=== PATIENT | female | born 1965 | race Caucasian/White ===

== ENCOUNTER → 2019-01-28 | Day surgery (SDC) | payer OTHER ==
[~2019-01-28] VITALS: Ht 162.5 cm; Wt 110.2 kg
[~2019-01-28] MED LIST: ANTIVERT/2525 M1 PO; ASPIRIN ADULT L81 M2 PO; CARDIZEM120 MG PO; CARTIA XT120 MG PO; EFFEXOR XR150 M1 PO; PRILOSEC20 M2 PO; SEROQUEL50 MG PO; VITAMIN C1000 M5 PO; VITAMIN C500 M4 PO; VITAMIN D-32000 UNI1 PO; WELLBUTRIN SR150 MG PO; XANAX1 MG PO
--- NOTE | ~2019-01-28 | O ---
[place], [place] OPERATIVE NOTE NAME: JOSE KRUSE UNIT #: [id number] ROOM: DOCTOR: BELKYS HARGROVE MD BIRTHDATE: [birth year] DOS: 01/28/2019 GASTROENDOSCOPIC REPORT INDICATIONS: A 53-year-old patient who was presented with chief complaint of concern about colonic screening as well on chronic omeprazole therapy for the past 20 years. ALLERGIES: CODEINE. FAMILY HISTORY: Noncontributory. PAST SURGICAL HISTORY: Cholecystectomy, tubal ligation, hysterectomy, abdominal hernia, appendectomy. PAST MEDICAL HISTORY: Hypertension, borderline diabetes mellitus, depression. SOCIAL HISTORY: Smoker, nonalcohol consumer, 6-pack of carbonated soda drinker per day. PROCEDURE: Today's procedure part of investigation is panendoscopy and colonoscopy. PREMEDICATION: Propofol. SCOPE: Olympus forward-viewing gastroscope Q10 video. REPORT: After putting the patient in left lateral position and application of lubricant to the scope, the scope was introduced. Thereafter, under direct visualization, I advanced through the length of esophagus without difficulty. Hiatal hernia was noticed. Gastric pouch was entered. Gastritis seen. Antral biopsy obtained for H. pylori. Duodenal bulb, second and third part within normal limits. The patient extubated, tolerated the procedure well. IMPRESSION: Small hiatal hernia, gastritis, status post biopsy. PLAN AND DISCUSSION: Omeprazole 20 mg 1 daily and antireflux measures to stop drinking 6 pack of carbonated soda per day. No smoking was advised, elevation of the head of the bed at 6 to 10 inches was recommended. I doubt if she is going to be compliant; however, we will try, on the other hand we are going to proceed with colonoscopy today. PROCEDURE #2 INDICATIONS: The patient with colonic screening, undergoing investigation. PROCEDURE: Today's procedure part of investigation is colonoscopy plus piecemeal polypectomy. PREMEDICATION: Propofol. [place], [place] OPERATIVE NOTE NAME: JOSE KRUSE UNIT #: [id number] ROOM: DOCTOR: BELKYS HARGROVE MD BIRTHDATE: [birth year] SCOPE: Olympus forward-viewing colonoscope 10L video. REPORT: After putting the patient in left lateral position and application of lubricant to the scope, the scope was introduced. Thereafter, under direct visualization, advanced through the length of very tortuous colon. Base of the cecum explored, appendiceal orifice identified, ileocecal valve was defined. Diverticulosis scatteredly was noticed. A sessile polypoid lesion in the rectum with piecemeal polypectomy removed. The patient extubated, tolerated the procedure well. IMPRESSION: Diverticulosis, tortuous colon. Rectal sessile polyp. PLAN AND DISCUSSION: The patient does not need further colonoscopies 5-7 years. High fiber diet. ACTIVITY: Ad mariposa. Thank you very much indeed. BELKYS HARGROVE MD CM:OPRECORD:OPERATIVE NOTE [id number] SANTI HARGROVE MD 01/28/19 1130 interface
[2019-01-28 08:42] VITALS: BP 141/74
[2019-01-28 10:13] VITALS: BP 112/65
[2019-01-28 10:28] VITALS: BP 122/72
[2019-01-28 10:43] VITALS: BP 134/78
== END | disposition home or self-care (01) ==
LOC: SDC 01-22 09:30
DX: Z12.11 Encounter for screening for malignant neoplasm of colon (principal); K62.1 Rectal polyp; K57.30 Diverticulosis of large intestine without perforation or abscess without bleeding; K63.89 Other specified diseases of intestine; K29.50 Unspecified chronic gastritis without bleeding; K44.9 Diaphragmatic hernia without obstruction or gangrene; I10 Essential (primary) hypertension; E11.9 Type 2 diabetes mellitus without complications; F17.210 Nicotine dependence, cigarettes, uncomplicated; F32.9 Major depressive disorder, single episode, unspecified; E66.09 Other obesity due to excess calories; Z90.49 Acquired absence of other specified parts of digestive tract; Z98.51 Tubal ligation status; Z90.710 Acquired absence of both cervix and uterus; Z98.890 Other specified postprocedural states; Z88.6 Allergy status to analgesic agent; Z68.41 Body mass index [BMI] 40.0-44.9, adult; Z79.899 Other long term (current) drug therapy

== ENCOUNTER → 2020-04-08 | Outpatient (CLI) | payer OTHER ==
[2020-04-08 13:31] LABS: BASO # 0.1 10*3/uL (0.0-0.1); BASO % 0.8 % (0.0-1.0); EOS # 0.2 10*3/uL (0.0-0.4); EOS % 1.9 % (1.0-4.0); HEMATOCRIT 46.7 % (37.0-47.0); LYMPH # 2.8 10*3/uL (1.3-4.4); LYMPH % 22.8 % (27.0-41.0); MEAN CELL VOLUME 90.9 fl (81.0-99.0); MEAN CORPUSCULAR HGB 30.5 pg (27.0-31.0); MEAN CORPUSCULAR HGB CONC 33.6 g/dl (33.0-37.0); MEAN PLATELET VOLUME 10.5 fl (9.6-12.3); MONO # 0.5 10*3/uL (0.1-1.0); MONO % 4.3 % (3.0-9.0); NEUT # 8.7 10*3/uL (2.3-7.9); NEUT % 69.9 % (47.0-73.0); PLATELET COUNT AUTOMATED 294 10*3/uL (130-400); RED BLOOD COUNT 5.14 10*6/uL (4.10-5.10); RED CELL DISTRI WIDTH 13.4 % (0-14.5); WHITE BLOOD COUNT 12.4 10*3/uL (4.8-10.8)
[2020-04-08 13:58] LABS: ALBUMIN 3.6 gm/dl (3.1-4.5); ALKALINE PHOSPHATASE 111 U/L (45-117); BUN 7 mg/dl (7-24); CHLORIDE 104 mmol/L (98-107); CHOLESTEROL 165 mg/dL (<200); CREATININE 0.96 mg/dL (0.55-1.02); FREE T4 1.12 ng/dl (0.76-1.46); HDL CHOLESTEROL 48 mg/dl (40-60); LDL CHOLESTEROL 76 mg/dL (9-159); POTASSIUM 3.9 mmol/L (3.5-5.1); SGOT/AST 13 IU/L (3-35); SGPT/ALT 31 U/L (12-78); SODIUM 138 mmol/L (136-145); TOTAL PROTEIN 7.9 gm/dL (6.4-8.2); TRIGLYCERIDES 207 mg/dl (<150); VLDL CHOLESTEROL 41 mg/dL (6-40)
[2020-04-08 14:30] LABS: VITAMIN D, 25-HYDROXY 48.7 ng/mL (30-100)
== END | disposition home or self-care (01) ==
LOC: LAB 13:14
PROVIDERS: Internal Medicine
DX: Z00.00 Encounter for general adult medical examination without abnormal findings (principal); Z13.220 Encounter for screening for lipoid disorders; I10 Essential (primary) hypertension; E55.9 Vitamin D deficiency, unspecified; E11.9 Type 2 diabetes mellitus without complications

== ENCOUNTER → 2020-07-28 | Outpatient (CLI) | payer OTHER | END | disposition home or self-care (01) | LOC: MAMMO 11:00 | PROVIDERS: ATTEND Internal Medicine | DX: Z12.31 Encounter for screening mammogram for malignant neoplasm of breast (principal) ==

== ENCOUNTER → 2021-03-09 | Outpatient (CLI) | payer OTHER ==
[2021-03-09 14:58] LABS: BASO # 0.1 10*3/uL (0.0-0.1); BASO % 0.7 % (0.0-1.0); EOS # 0.3 10*3/uL (0.0-0.4); LYMPH # 2.4 10*3/uL (1.3-4.4); LYMPH % 18.6 % (27.0-41.0); MEAN CORPUSCULAR HGB 30.4 pg (27.0-31.0); MEAN CORPUSCULAR HGB CONC 32.7 g/dl (33.0-37.0); MEAN PLATELET VOLUME 10.2 fl (9.6-12.3); MONO # 0.7 10*3/uL (0.1-1.0); MONO % 5.3 % (3.0-9.0); NEUT # 9.4 10*3/uL (2.3-7.9); NEUT % 72.9 % (47.0-73.0); PLATELET COUNT AUTOMATED 273 10*3/uL (130-400); RED BLOOD COUNT 4.73 10*6/uL (4.10-5.10); RED CELL DISTRI WIDTH 13.9 % (0-14.5); WHITE BLOOD COUNT 12.8 10*3/uL (4.8-10.8)
[2021-03-09 15:17] LABS: ALBUMIN 3.4 gm/dl (3.1-4.5); ALKALINE PHOSPHATASE 123 U/L (45-117); BUN 8 mg/dl (7-24); CHLORIDE 99 mmol/L (98-107); CHOLESTEROL 168 mg/dL (<200); CREATININE 0.84 mg/dL (0.55-1.02); FREE T4 1.02 ng/dl (0.76-1.46); HDL CHOLESTEROL 49 mg/dl (40-60); LDL CHOLESTEROL 91 mg/dL (9-159); SGOT/AST 5 IU/L (3-35); SGPT/ALT 20 U/L (12-78); SODIUM 136 mmol/L (136-145); TOTAL PROTEIN 7.9 gm/dL (6.4-8.2); TRIGLYCERIDES 138 mg/dl (<150); VLDL CHOLESTEROL 28 mg/dL (6-40)
[2021-03-09 16:04] LABS: VITAMIN D, 25-HYDROXY 28.9 ng/mL (30-100)
== END | disposition home or self-care (01) ==
LOC: LAB 14:32
PROVIDERS: ATTEND Internal Medicine
DX: Z00.01 Encounter for general adult medical examination with abnormal findings (principal); I10 Essential (primary) hypertension; E55.9 Vitamin D deficiency, unspecified; Z13.220 Encounter for screening for lipoid disorders; Z13.21 Encounter for screening for nutritional disorder; Z13.1 Encounter for screening for diabetes mellitus

== ENCOUNTER 2021-05-10 14:13 | Emergency (ER) | payer OTHER ==
[~2021-05-10] VITALS: Ht 162.5 cm; Wt 103.0 kg
[~2021-05-10 14:13] MED LIST changes: +PRILOSEC20 M1 PO; -PRILOSEC20 M2 PO
[2021-05-10 14:53] LABS: BASO # 0.1 10*3/uL (0.0-0.1); BASO % 0.6 % (0.0-1.0); EOS # 0.1 10*3/uL (0.0-0.4); HEMATOCRIT 45.2 % (37.0-47.0); LYMPH # 2.4 10*3/uL (1.3-4.4); LYMPH % 18.2 % (27.0-41.0); MEAN CELL VOLUME 91.3 fl (81.0-99.0); MEAN CORPUSCULAR HGB 29.9 pg (27.0-31.0); MEAN CORPUSCULAR HGB CONC 32.7 g/dl (33.0-37.0); MEAN PLATELET VOLUME 10.4 fl (9.6-12.3); MONO # 0.7 10*3/uL (0.1-1.0); NEUT # 9.9 10*3/uL (2.3-7.9); NEUT % 74.7 % (47.0-73.0); PLATELET COUNT AUTOMATED 291 10*3/uL (130-400); RED BLOOD COUNT 4.95 10*6/uL (4.10-5.10); RED CELL DISTRI WIDTH 13.8 % (0-14.5); WHITE BLOOD COUNT 13.2 10*3/uL (4.8-10.8)
[2021-05-10 15:07] LABS: ALBUMIN 3.7 gm/dl (3.1-4.5); ALKALINE PHOSPHATASE 100 U/L (45-117); BUN 9 mg/dl (7-24); CHLORIDE 102 mmol/L (98-107); CREATININE 0.86 mg/dL (0.55-1.02); POTASSIUM 3.8 mmol/L (3.5-5.1); SGOT/AST 7 IU/L (3-35); SGPT/ALT 17 U/L (12-78); SODIUM 132 mmol/L (136-145); TOTAL PROTEIN 8.4 gm/dL (6.4-8.2)
[2021-05-10] MEDS ORDERED: ZITHROMAX250 MG PO ×2 (18:14)
[2021-05-10] MEDS ORDERED: MUCINEX1200 M1 PO ×2 (18:14)
[2021-05-11] MEDS ORDERED: METFORMIN HYDR500 MG PO (22:40)
[2021-05-11] MEDS ORDERED: BUSPIRONE HCL10 MG PO (22:45)
[2021-05-11] MEDS ORDERED: LISINOPRIL10 M1 PO (22:47)
== END 2021-05-10 19:37 | disposition home or self-care (01) ==
LOC: ED 14:13
PROVIDERS: Student in an Organized Health Care Education/Training Program
DX: J18.1 Lobar pneumonia, unspecified organism (principal); F17.200 Nicotine dependence, unspecified, uncomplicated; Z88.5 Allergy status to narcotic agent; Z79.899 Other long term (current) drug therapy; Z79.82 Long term (current) use of aspirin; Z98.51 Tubal ligation status; Z90.49 Acquired absence of other specified parts of digestive tract; Z90.711 Acquired absence of uterus with remaining cervical stump

== ENCOUNTER 2021-05-11 19:53 | Inpatient (IN) | payer OTHER ==
[~2021-05-11] VITALS: Ht 162.5 cm; Wt 105.4 kg
[~2021-05-11 19:53] MED LIST changes: +MUCINEX1200 M1 PO; +ZITHROMAX250 MG PO
[2021-05-11 20:01] VITALS: BP 114/66
[2021-05-11 20:44] LABS: BASO # 0.1 10*3/uL (0.0-0.1); BASO % 0.5 % (0.0-1.0); EOS # 0.1 10*3/uL (0.0-0.4); EOS % 0.7 % (1.0-4.0); HEMATOCRIT 43.3 % (37.0-47.0); MEAN CELL VOLUME 92.3 fl (81.0-99.0); MEAN CORPUSCULAR HGB 29.6 pg (27.0-31.0); MEAN CORPUSCULAR HGB CONC 32.1 g/dl (33.0-37.0); MEAN PLATELET VOLUME 10.5 fl (9.6-12.3); MONO # 0.9 10*3/uL (0.1-1.0); MONO % 4.8 % (3.0-9.0); NEUT # 14.9 10*3/uL (2.3-7.9); NEUT % 82.7 % (47.0-73.0); PLATELET COUNT AUTOMATED 299 10*3/uL (130-400); RED BLOOD COUNT 4.69 10*6/uL (4.10-5.10); RED CELL DISTRI WIDTH 13.9 % (0-14.5)
[2021-05-11 21:01] LABS: ALBUMIN 3.4 gm/dl (3.1-4.5); ALKALINE PHOSPHATASE 130 U/L (45-117); BUN 9 mg/dl (7-24); CHLORIDE 104 mmol/L (98-107); CREATININE 0.94 mg/dL (0.55-1.02); SGOT/AST 13 IU/L (3-35); SGPT/ALT 47 U/L (12-78); SODIUM 133 mmol/L (136-145); TOTAL PROTEIN 8.1 gm/dL (6.4-8.2)
[2021-05-11] MEDS ORDERED: METFORMIN HYDR500 MG PO (22:40)
[2021-05-11] MEDS ORDERED: BUSPIRONE HCL10 MG PO (22:45)
[2021-05-11] MEDS ORDERED: LISINOPRIL10 M1 PO (22:47)
[2021-05-11 23:04] VITALS: BP 128/48
[2021-05-11 23:10] VITALS: BP 116/65
[2021-05-12 08:00] VITALS: BP 111/71
[2021-05-12 12:00] VITALS: BP 110/54
[2021-05-12 16:00] VITALS: BP 108/54
[2021-05-12 20:00] VITALS: BP 105/57
[2021-05-13] VITALS: BP 102/59
[2021-05-13 08:00] VITALS: BP 115/71
[2021-05-13 12:00] VITALS: BP 113/50
[2021-05-13 16:00] VITALS: BP 98/74
[2021-05-13 20:00] VITALS: BP 112/43
[2021-05-14] VITALS: BP 129/49
[2021-05-14 08:00] VITALS: BP 115/83
[2021-05-14] MEDS ORDERED: CIPRO500 MG PO (17:45)
== END 2021-05-14 18:03 | disposition home or self-care (01) | DRG 720 ==
LOC: ED 19:53 → EDHOLD 22:04 → 4E 22:04 → EDHOLD 22:12 → 4E 22:41
PROVIDERS: Internal Medicine Critical Care Medicine; Physician Assistant; ADMIT Internal Medicine; ATTEND Internal Medicine
DX: A41.9 Sepsis, unspecified organism (principal); J18.9 Pneumonia, unspecified organism; I10 Essential (primary) hypertension; E11.9 Type 2 diabetes mellitus without complications; F31.9 Bipolar disorder, unspecified; F17.210 Nicotine dependence, cigarettes, uncomplicated; J96.21 Acute and chronic respiratory failure with hypoxia; K21.9 Gastro-esophageal reflux disease without esophagitis; Z20.822 Contact with and (suspected) exposure to COVID-19; F41.1 Generalized anxiety disorder; F43.10 Post-traumatic stress disorder, unspecified; E66.01 Morbid (severe) obesity due to excess calories; Z68.41 Body mass index [BMI] 40.0-44.9, adult; Z88.5 Allergy status to narcotic agent; Z90.49 Acquired absence of other specified parts of digestive tract; Z98.51 Tubal ligation status; Z90.710 Acquired absence of both cervix and uterus; Z80.42 Family history of malignant neoplasm of prostate; Z80.8 Family history of malignant neoplasm of other organs or systems; Z83.3 Family history of diabetes mellitus; Z82.49 Family history of ischemic heart disease and other diseases of the circulatory system; Z87.01 Personal history of pneumonia (recurrent)

== ENCOUNTER → 2022-09-21 | Outpatient (CLI) | payer OTHER ==
[~2022-09-21] MED LIST changes: +BUSPIRONE HCL10 MG PO; +CIPRO500 MG PO; +LISINOPRIL10 M1 PO; +METFORMIN HYDR500 MG PO
[2022-09-21 12:49] LABS: BASO # 0.1 10*3/uL (0.0-0.1); EOS # 0.2 10*3/uL (0.0-0.4); EOS % 1.8 % (1.0-4.0); HEMATOCRIT 44.1 % (37.0-47.0); LYMPH % 23.6 % (27.0-41.0); MEAN CELL VOLUME 93.8 fl (81.0-99.0); MEAN CORPUSCULAR HGB 30.9 pg (27.0-31.0); MEAN CORPUSCULAR HGB CONC 32.9 g/dl (33.0-37.0); MEAN PLATELET VOLUME 10.1 fl (9.6-12.3); MONO # 0.7 10*3/uL (0.1-1.0); MONO % 5.7 % (3.0-9.0); NEUT # 8.7 10*3/uL (2.3-7.9); NEUT % 67.5 % (47.0-73.0); PLATELET COUNT AUTOMATED 298 10*3/uL (130-400); RED CELL DISTRI WIDTH 13.3 % (0-14.5); WHITE BLOOD COUNT 12.8 10*3/uL (4.8-10.8)
[2022-09-21 13:09] LABS: BUN 11 mg/dl (7-24); CHLORIDE 104 mmol/L (98-107); CHOLESTEROL 200 mg/dL (<200); CREATININE 0.92 mg/dL (0.55-1.02); POTASSIUM 4.1 mmol/L (3.5-5.1); SGOT/AST 38 IU/L (3-35); SGPT/ALT 50 U/L (12-78); SODIUM 138 mmol/L (136-145); TOTAL PROTEIN 7.6 gm/dL (6.4-8.2); TRIGLYCERIDES 324 mg/dl (<150)
[2022-09-21 13:14] LABS: ALKALINE PHOSPHATASE 111 U/L (45-117); CPK 36 U/L (26-192); FREE T4 0.91 ng/dl (0.76-1.46); LDL CHOLESTEROL 85 mg/dL (9-159)
[2022-09-21 13:44] LABS: VITAMIN D, 25-HYDROXY 23.4 ng/mL (30-100)
== END ==
LOC: LAB 12:27
PROVIDERS: ATTEND Internal Medicine
DX: Z13.0 Encounter for screening for diseases of the blood and blood-forming organs and certain disorders involving the immune mechanism (principal); Z13.1 Encounter for screening for diabetes mellitus; Z13.21 Encounter for screening for nutritional disorder; Z13.220 Encounter for screening for lipoid disorders; Z13.228 Encounter for screening for other metabolic disorders; Z13.6 Encounter for screening for cardiovascular disorders; Z13.89 Encounter for screening for other disorder; R53.81 Other malaise; R79.89 Other specified abnormal findings of blood chemistry; E55.9 Vitamin D deficiency, unspecified; D51.9 Vitamin B12 deficiency anemia, unspecified; E03.9 Hypothyroidism, unspecified; D52.9 Folate deficiency anemia, unspecified

== ENCOUNTER → 2023-04-16 | Outpatient (CLI) | payer MEDICAID | END | disposition home or self-care (01) | LOC: MAMMO 01:43 | PROVIDERS: ATTEND Internal Medicine | DX: Z12.31 Encounter for screening mammogram for malignant neoplasm of breast (principal); N64.9 Disorder of breast, unspecified ==

== ENCOUNTER 2023-06-26 20:00 | Emergency (ER) | payer MEDICAID ==
[~2023-06-26] VITALS: Ht 162.5 cm; Wt 96.2 kg
[2023-06-26 20:55] LABS: BASO # 0.1 10*3/uL (0.0-0.1); BASO % 0.8 % (0.0-1.0); EOS # 0.1 10*3/uL (0.0-0.4); EOS % 1.4 % (1.0-4.0); LYMPH # 1.7 10*3/uL (1.3-4.4); LYMPH % 20.5 % (27.0-41.0); MEAN CELL VOLUME 91.9 fl (81.0-99.0); MEAN CORPUSCULAR HGB 30.9 pg (27.0-31.0); MEAN CORPUSCULAR HGB CONC 33.7 g/dl (33.0-37.0); MEAN PLATELET VOLUME 10.5 fl (9.6-12.3); MONO # 0.8 10*3/uL (0.1-1.0); MONO % 9.7 % (3.0-9.0); NEUT # 5.6 10*3/uL (2.3-7.9); NEUT % 67.4 % (47.0-73.0); PLATELET COUNT AUTOMATED 222 10*3/uL (130-400); RED BLOOD COUNT 4.46 10*6/uL (4.10-5.10); RED CELL DISTRI WIDTH 13.4 % (0-14.5); WHITE BLOOD COUNT 8.3 10*3/uL (4.8-10.8)
[2023-06-26 21:07] LABS: ACT PARTIAL THROMBO TIME 24.8 SECONDS (20.0-32.1)
[2023-06-26] MEDS ORDERED: VENLAFAXINE HYD75 M3 PO (21:15)
[2023-06-26] MEDS ORDERED: ASPIRIN ADULT L81 M2 PO (21:16)
[2023-06-26 21:21] LABS: ALKALINE PHOSPHATASE 89 U/L (46-116); BUN 9 mg/dl (9-23); CHLORIDE 101 mmol/L (98-107); LIPASE 32 U/L (12-53); POTASSIUM 3.9 mmol/L (3.4-5.1); SGPT/ALT 16 U/L (10-49); TOTAL PROTEIN 7.4 gm/dL (6.0-8.0)
[2023-06-26] MEDS ORDERED: AMOX-CLAV 875-1 EACH PO (23:13)
[2023-06-26] MEDS ORDERED: PREDNISONE20 M1 PO (23:13)
== END 2023-06-26 23:26 | disposition home or self-care (01) ==
LOC: ED 20:00
PROVIDERS: Internal Medicine
DX: L03.211 Cellulitis of face (principal); Z88.5 Allergy status to narcotic agent; Z79.899 Other long term (current) drug therapy; Z79.82 Long term (current) use of aspirin; Z98.51 Tubal ligation status; Z90.49 Acquired absence of other specified parts of digestive tract; Z90.711 Acquired absence of uterus with remaining cervical stump; Z98.890 Other specified postprocedural states